=== PATIENT | female | born 1960 | race Caucasian/White ===

== ENCOUNTER 2017-05-07 17:15 | Emergency (ER) | payer BC ==
[~2017-05-07] VITALS: Ht 162.6 cm; Wt 129.7 kg
--- NOTE | 2017-05-07 17:30 | Emergency Room Report ---
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 N Clinical Suspician of Infection? N Mental Status: 1 - Regular (Normal Baseline) Sepsis Risk:Low Sepsis Risk Have you (or family members/close friends) recently traveled outside the [place]? N If Yes, where/when: Have you had exposure to infectious disease within the past month? TB? Other? Specify: Source patient, RN notes reviewed Exam Limitations no limitations Comment Pt comes to the ED with pain in the left SI jjoint that started last night and feels like a nerve that goes into her left hip. NO trouble with BM's, UT and no Saddle anesthesia. She has had 3 surgeries on the low back in 2008, 2011 and 2012. no recent injuries Cardiac Chest Pain Chest pain indicative of cardiac No ALLERGIES Coded Allergies: meperidine (From DEMEROL) (Mild, 05/07/17) morphine (Mild, 05/07/17) Home Medications Reported Medications Lovastatin 10 MG PO QHS OMEPRAZOLE MAGNESIUM (Prilosec OTC) 20 MG PO DAILYP PRN STOMACH Diltiazem Hydrochloride (Diltiazem) 120 MG PO DAILY Zolpidem Tartrate (Ambien 5MG) 5 MG PO QHS History Medical History General CAD? No Angina: Yes [place]: No Hypertension? Yes Hyperlipidemia? Yes CHF? No DVT? No PE? No COPD? No Asthma? No Anemia? No GERD? No Gastric ulcers? No GI Bleed? No Hernia? Yes Thyroid Problems? No Hypothyroidism? No CVA? No Seizures? No Diabetes? No Renal Insuffiency? No End Stage Renal Disease? No UTI? Yes Stones? No BPH? No GB Disease: No Nephritic Syndrome? No Asplenia? No Hepatitis? No Sickle Cell Disease? No Arthritis? Yes Migraines? No Cataracts? No Glaucoma? No MRSA? No HIV? No TB? No Anxiety? No Depression? No Cancer? 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 2 or more SIRS Criteria Met? B/P: MAP: Creatinine >2.0? UA output<0.5ml/kg/hr for 2 hrs? Platelet count >100,000? Lactate >2.0mmol/1? INR >1.2 or PTT > than 60 sec? Evidence of Organ Dysfunction? Provider documented clinical suspician of infection? N Sepsis Criteria Count: 1 Sepsis Risk: Low Sepsis Risk General Appearance normal appearance, WD/WN, no apparent distress Respiratory Status No: respiratory distress. 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 Yes Mathieu was queried for this patient? Yes Reference #: [id number] Risks/benefits of using a controlled substance for treatment were not discussed w/pt Departure Departure Time of Disposition 1741 Disposition DC Home or Self Care(routine) Clinical Impression Primary Impression: Chronic low back pain Qualifiers: Back pain laterality: left Sciatica presence: with sciatica Sciatica laterality: sciatica of left side Qualified Code: M54.42 - Lumbago with sciatica, left side Condition STABLE Referrals Oscar HU,Joby Armendariz (Family): 3 Days-Call Office Patient Instructions DI for Back Pain With Sciatica, DI for Low Back Pain, DI for Sciatica, Low Back Pain, Sciatica, Sciatica (Alternative Therapy) Additional Instructions Use meds as directed, sleep on a flat, hard surfface and followup with PCP to get MRI if symptoms persist Discharge Counseling Counseled pt/family regarding diagnosis, medications/RX, home care, follow up needs Prescriptions Current Visit Scripts Methocarbamol (Robaxin 500MG) 500 MG PO Q8H #60 TAB HYDROCODONE 5MG/APAP 325MG (Hydrocodon-Acetaminophen 5-325) 1 TAB PO Q4HP PRN pain #18 TAB ED Critical Care Critical Care No If Critical Care minutes are documented, the time involved in the performance of seperately reportable procedures was not counted toward critical care time documented. I directly delivered medical care to this critically ill and/or injured patient. Timely evaluation and treatment was necessary to address the significant organ system(s) dysfunction present in this patient. at 8840
--- NOTE | 2017-05-07 17:30 | Emergency Room Report ---
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 N Clinical Suspician of Infection? N Mental Status: 1 - Regular (Normal Baseline) Sepsis Risk:Low Sepsis Risk Have you (or family members/close friends) recently traveled outside the [place]? N If Yes, where/when: Have you had exposure to infectious disease within the past month? TB? Other? Specify: Source patient, RN notes reviewed Exam Limitations no limitations Comment Pt comes to the ED with pain in the left SI jjoint that started last night and feels like a nerve that goes into her left hip. NO trouble with BM's, UT and no Saddle anesthesia. She has had 3 surgeries on the low back in 2008, 2011 and 2012. no recent injuries Cardiac Chest Pain Chest pain indicative of cardiac No ALLERGIES Coded Allergies: meperidine (From DEMEROL) (Mild, 05/07/17) morphine (Mild, 05/07/17) Home Medications Reported Medications Lovastatin 10 MG PO QHS OMEPRAZOLE MAGNESIUM (Prilosec OTC) 20 MG PO DAILYP PRN STOMACH Diltiazem Hydrochloride (Diltiazem) 120 MG PO DAILY Zolpidem Tartrate (Ambien 5MG) 5 MG PO QHS History Medical History General CAD? No Angina: Yes [place]: No Hypertension? Yes Hyperlipidemia? Yes CHF? No DVT? No PE? No COPD? No Asthma? No Anemia? No GERD? No Gastric ulcers? No GI Bleed? No Hernia? Yes Thyroid Problems? No Hypothyroidism? No CVA? No Seizures? No Diabetes? No Renal Insuffiency? No End Stage Renal Disease? No UTI? Yes Stones? No BPH? No GB Disease: No Nephritic Syndrome? No Asplenia? No Hepatitis? No Sickle Cell Disease? No Arthritis? Yes Migraines? No Cataracts? No Glaucoma? No MRSA? No HIV? No TB? No Anxiety? No Depression? No Cancer? 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 2 or more SIRS Criteria Met? B/P: MAP: Creatinine >2.0? UA output<0.5ml/kg/hr for 2 hrs? Platelet count >100,000? Lactate >2.0mmol/1? INR >1.2 or PTT > than 60 sec? Evidence of Organ Dysfunction? Provider documented clinical suspician of infection? N Sepsis Criteria Count: 1 Sepsis Risk: Low Sepsis Risk General Appearance normal appearance, WD/WN, no apparent distress Respiratory Status No: respiratory distress. 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 Yes Mathieu was queried for this patient? Yes Reference #: [id number] Risks/benefits of using a controlled substance for treatment were not discussed w/pt Departure Departure Time of Disposition 1741 Disposition DC Home or Self Care(routine) Clinical Impression Primary Impression: Chronic low back pain Qualifiers: Back pain laterality: left Sciatica presence: with sciatica Sciatica laterality: sciatica of left side Qualified Code: M54.42 - Lumbago with sciatica, left side Condition STABLE Referrals Oscar HU,Joby Armendariz (Family): 3 Days-Call Office Patient Instructions DI for Back Pain With Sciatica, DI for Low Back Pain, DI for Sciatica, Low Back Pain, Sciatica, Sciatica (Alternative Therapy) Additional Instructions Use meds as directed, sleep on a flat, hard surfface and followup with PCP to get MRI if symptoms persist Discharge Counseling Counseled pt/family regarding diagnosis, medications/RX, home care, follow up needs Prescriptions Current Visit Scripts Methocarbamol (Robaxin 500MG) 500 MG PO Q8H #60 TAB HYDROCODONE 5MG/APAP 325MG (Hydrocodon-Acetaminophen 5-325) 1 TAB PO Q4HP PRN pain #18 TAB ED Critical Care Critical Care No If Critical Care minutes are documented, the time involved in the performance of seperately reportable procedures was not counted toward critical care time documented. I directly delivered medical care to this critically ill and/or injured patient. Timely evaluation and treatment was necessary to address the significant organ system(s) dysfunction present in this patient. at 1826
[2017-05-07 18:03] VITALS: BP 165/100
--- OUTSIDE RECORDS SUMMARY | 2017-05-17 05:06 | External Medical Summary Rpt | CCD ---
Author Author , SHAWNA Organization [employer] Address Unknown Phone [email or web address] Care Team Providers Care Sdc Teacher Name Role Phone Laisha THOMAS, Unavailable Unavailable Laisha THOMAS Purpose Continuity of Care Document - 06-26-2013 through 2016 Problems Code Diagnosis DOS Provider Status 272.4 Hyperlipide [facility] 276.8 Hypokalemia [facility] [id number] Chest pain [facility] [id number] Tachycardia [facility] 401.1 Benign [facility] n [phone] Active [facility] 789.06 Epigastric [facility] [id number] Chronic [facility] Allergies, Adverse Reactions, Alerts Type Drug Allergy Adverse Reaction to Substance Substance Reaction Severity Meperidine CAUSE ME TO GET HOT Unknown ALL OVER BODY Morphine I-RASH Intermediate Medications Na ND Rx Da Fi Fi Am Da Di Ph RX Ph St me C No te ll ll ou ys ag ar # ys at rm s nt no ma ic us Or Da si cy ia de te s n re d Sa 63 02 0 No li 80 -1 ne 70 2- Lo 10 20 ng Fl 07 14 er us 5 h Ac 10 ti ML ve Sy ri ng e LO 00 02 0 No RA 64 -1 ZE 16 2- Lo PA 04 20 ng M 82 14 er 2 5 MG Ac /M ti L ve AL EN 55 02 0 No AL 39 -1 AP 00 2- Lo RI 01 20 ng LA 11 14 er T 0 1. Ac 25 ti ve MG /M L AL ON 00 02 0 No DA 64 -1 NS 16 2- Lo ET 08 20 ng RO 02 14 er N 5 HC Ac L ti 4 ve MG /2 ML AL SO 00 11 0 No DI 40 -2 UM 97 1- Lo 98 20 ng CH 30 13 er LO 9 RI Ac DE ti ve 0. 9% SO MURIEL TI ON Sa 63 11 0 No li 80 -2 ne 70 1- Lo 10 20 ng Fl 07 13 er us 5 h Ac 10 ti ML ve Sy ri ng e NI 00 11 0 No TR 07 -2 OS 10 1- Lo TA 41 20 ng T 81 13 er 0. 3 4 Ac MG ti ve TA BL ET SL LO 00 11 0 No RA 64 -2 ZE 16 1- Lo PA 04 20 ng M 82 13 er 2 5 MG Ac /M ti L ve AL ND 00 11 0 No OM 64 -2 ET 11 1- Lo YOUNG 49 20 ng ZI 53 13 er NE 5 Ac 25 ti ve MG /M L AM PU L PA 51 11 0 No NT 07 -2 OP 90 1- Lo RA 05 20 ng ZO 12 13 er LE 0 Ac SO ti D ve DR 40 MG TA B 63 11 0 No PI 73 -2 RI 90 1- Lo N 02 20 ng EC 30 13 er 1 32 Ac 5 ti MG ve TA BL ET Di 00 11 0 No lt 45 -2 ia 62 1- Lo ze 61 20 ng m 36 13 er 18 3 0M Ac G ti ER ve Ca ps ul e GI 12 11 0 No 32 -2 CO 22 1- Lo CK 22 20 ng TA 22 13 er IL 2 Ac 60 ti ML ve UD C Vital Signs 09-17-2013 23:23 Name Value Interpretat Reference Comment ion Range BP 100 mm[Hg] Diastolic BP Systolic 156 mm[Hg] Heart 106 /min Rate/Pulse O2% 95 % Respiratory 20 /min Rate 09-17-2013 20:23 Name Value Interpretat Reference Comment ion Range BP 92 mm[Hg] Diastolic BP Systolic 135 mm[Hg] Heart 103 /min Rate/Pulse O2% 97 % Respiratory 20 /min Rate 06-26-2013 14:48 Name Value Interpretat Reference Comment ion Range Body 98.5 [degF] Temperature BP 86 mm[Hg] Diastolic BP Systolic 131 mm[Hg] Heart 104 /min Rate/Pulse Respiratory 20 /min Rate 06-26-2013 12:00 Name Value Interpretat Reference Comment ion Range O2% 92 % 06-26-2013 03:46 Name Value Interpretat Reference Comment ion Range Height 162.56 cm Weight 122.925 kg Measured 06-26-2013 01:06 Name Value Interpretat Reference Comment ion Range Body 97.9 [degF] Temperature BP 126 mm[Hg] Diastolic BP Systolic 203 mm[Hg] Heart 117 /min Rate/Pulse O2% 97 % Respiratory 20 /min Rate Weight 0 [oz_av] Measured Results Labs Lab Lab Date Result Refere Interp Status Commen Order Detail nces retati t Range on TROPONIN I (09-17-2013 22:10) TROPONI 2 Less 0.00-0. complet N I 014 than 06 ed 22:10 0.02 ng/mL COMPREHENSIVE METABOLIC PANEL (09-17-2013 19:45) Glucose 130 74-106 complet 014 mg/dL ed Bld-mCn 19:45 c BUN 13 7-18 complet Bld-mCn 014 mg/dL ed c 19:45 Creat 0.9 0.6-1.0 complet SerPl-m 014 mg/dL ed Cnc 19:45 Creat 136 50-200 complet Cl 014 ML/MIN ed predict 19:45 ed SerPl C-G-vRa te GFR/BSA 66 59- complet .pred 014 ML/MIN ed SerPl 19:45 Schwart z-vRate Sodium 144 136-145 complet SerPl-s 014 mmoL/L ed Cnc 19:45 Potassi 3.5 3.5-5.1 complet um 014 mmoL/L ed SerPl-s 19:45 Cnc Chlorid 104 98-107 complet e 014 mmoL/L ed SerPl-s 19:45 Cnc CO2 28 21.0-32 complet SerPl-s 014 mmoL/L .0 ed Cnc 19:45 Calcium 09-17-2 9.4 8.5-10. complet 014 mg/dL 1 ed SerPl-m 19:45 Cnc Prot 09-17-2 7.9 6.4-8.2 complet SerPl-m 014 gm/dL ed Cnc 19:45 Albumin 09-17-2 4.0 3.4-5.0 complet 014 gm/dL ed SerPl-m 19:45 Cnc Globuli 3.9 1.3-3.2 complet n 014 gm/dL ed Ser-mCn 19:45 c Albumin 2 1.0 UNK 1.1-1.8 complet /Glob 014 ed SerPl-m 19:45 Rto Bilirub 2 0.2 0.2-1.0 complet 014 mg/dL ed SerPl-m 19:45 Cnc AST 2 26 U/L 15-37 complet SerPl-c 014 ed Cnc 19:45 ALT 53 U/L 12-78 complet SerPl-c 014 ed Cnc 19:45 ALP 2 100 U/L 50-136 complet SerPl-c 014 ed Cnc 19:45 Amylase SerPl-cCnc (09-17-2013 19:45) Amylase 2 54 U/L 25-115 complet 014 ed SerPl-c 19:45 Cnc LIPASE (09-17-2013 19:45) LIPASE 157 U/L 73-393 complet 014 ed 19:45 CBC with AUTO DIFF (09-17-2013 19:45) WBC # 02-12-2 5.5 4.8-10. complet Bld 014 K/MM3 8 ed Auto 19:45 RBC # 09-17-2 5.42 4.2-5.4 complet Bld 014 M/mm3 ed Auto 19:45 Hgb 09-17-2 14.8 12.2-16 complet Bld-mCn 014 g/dL .2 ed c 19:45 Hct Fr 45.0 % 37.0-47 complet Bld 014 .0 ed 19:45 MCV RBC 09-17-2 83.0 fl 82.2-97 complet 014 .8 ed 19:45 MCH RBC 09-17-2 27.3 pg 27-31.2 complet Qn 014 ed Auto 19:45 MEAN 2 32.9 31.8-35 complet CORPUSC 014 g/dl .4 ed ULAR 19:45 HGB CONC RDW RBC 2 14.0 % 11.5-17 complet Auto 014 .5 ed 19:45 Platele 215 142-424 complet t Bld 014 K/mm3 ed Ql 19:45 Manual MEAN 8.0 fl 7.4-10. complet PLATELE 014 4 ed T 19:45 VOLUME Granulo 2 42.6 % 37.0-80 complet cytes 014 .0 ed Fr Bld 19:45 Auto LYMPH % 02-12-2 48.7 % 10-50.0 complet 014 ed 19:45 Monocyt 02-12-2 4.7 % 1.7-9.3 complet es Fr 014 ed Bld 19:45 Auto Eosinop 02-12-2 3.5 % 0.1-12. complet hil Fr 014 0 ed Bld 19:45 Auto Basophi 02-12-2 0.5 % 0.1-2.0 complet ls Fr 014 ed Bld 19:45 Auto Granulo 02-12-2 2.4 1.8-7.8 complet cytes # 014 K/mm3 ed Bld 19:45 Auto Lymphoc 02-12-2 2.7 0.7-4.5 complet ytes Fr 014 K/mm3 ed Bld 19:45 Auto Monocyt 02-12-2 0.3 0.1-1.0 complet es # 014 K/mm3 ed Bld 19:45 Auto Eosinop -12-2 0.2 0.0-0.4 complet hil # 014 K/mm3 ed Bld 19:45 Auto Basophi 02-12-2 0.0 0-0.2 complet ls # 014 K/MM3 ed Bld 19:45 Auto COMPREHENSIVE METABOLIC PANEL (06-26-2013 01:20) Glucose 06-26- 112 74-106 complet 013 mg/dL ed Bld-mCn 01:20 c BUN 06-26- 13 7-18 complet Bld-mCn 013 mg/dL ed c 01:20 Creat 0.9 0.6-1.0 complet SerPl-m 013 mg/dL ed Cnc 01:20 ESTIMAT 06-26- 138 50-200 complet ED 013 ML/MIN ed CREATIN 01:20 INE CLEARAN CE GFR 06-26- 66 59- complet (ESTIMA 013 ML/MIN ed PATRICIO) 01:20 Sodium 06-26- 143 136-145 complet SerPl-s 013 mmoL/L ed Cnc 01:20 Potassi 3.1 3.5-5.1 complet um 013 mmoL/L ed SerPl-s 01:20 Cnc Chlorid 105 98-107 complet e 013 mmoL/L ed SerPl-s 01:20 Cnc CO2 11-21-2 26 21.0-32 complet SerPl-s 013 mmoL/L .0 ed Cnc 01:20 Calcium 06-26-2 9.1 8.5-10. complet 013 mg/dL 1 ed SerPl-m 01:20 Cnc Prot 06-26-2 7.7 6.4-8.2 complet SerPl-m 013 gm/dL ed Cnc 01:20 Albumin 06-26-2 3.8 3.4-5.0 complet 013 gm/dL ed SerPl-m 01:20 Cnc Globuli 06-26-2 3.9 1.3-3.2 complet n 013 gm/dL ed Ser-mCn 01:20 c Albumin 06-26-2 1.0 UNK 1.1-1.8 complet /Glob 013 ed SerPl-m 01:20 Rto Bilirub 06-26-2 0.3 0.2-1.0 complet 013 mg/dL ed SerPl-m 01:20 Cnc AST 06-26-2 21 U/L 15-37 complet SerPl-c 013 ed Cnc 01:20 ALT 06-26-2 55 U/L 30-65 complet SerPl-c 013 ed Cnc 01:20 ALP 06-26-2 90 U/L 50-136 complet SerPl-c 013 ed Cnc 01:20 Amylase SerPl-cCnc (06-26-2013 01:20) Amylase 06-26-2 43 U/L 25-115 complet 013 ed SerPl-c 01:20 Cnc LIPASE (06-26-2013 01:20) LIPASE 06-26-2 118 U/L 73-393 complet 013 ed 01:20 LIPID PROFILE (06-26-2013 01:20) Cholest 06-26-2 201 Less complet 013 mg/dL than ed SerPl-m 01:20 200 Cnc HDLc 06-26-2 51.0 40-60 complet SerPl-m 013 MG/DL ed Cnc 01:20 LDLc 06-26-2 131.8 0-130 complet SerPl 013 mg/dL ed Calc-mC 01:20 nc VLDL 06-26-2 18.2 0-40 complet CHOLEST 013 UNK ed JEY 01:20 Trigl 21-2 91 30-200 complet SerPl-m 013 mg/dL ed Cnc 01:20 CBC with AUTO DIFF (06-26-2013 01:20) WBC # 11-21-2 6.8 4.8-10. complet Bld 013 K/MM3 8 ed Auto 01:20 RBC # 11-21-2 4.87 4.2-5.4 complet Bld 013 M/mm3 ed Auto 01:20 Hgb 11-21-2 13.8 12.2-16 complet Bld-mCn 013 g/dL .2 ed c 01:20 Hct Fr 11-21-2 40.5 % 37.0-47 complet Bld 013 .0 ed 01:20 MCV RBC 11-21-2 83.3 fl 82.2-97 complet 013 .8 ed 01:20 MCH RBC 11-21-2 28.4 pg 27-31.2 complet Qn 013 ed Auto 01:20 MEAN 11-21-2 34.1 31.8-35 complet CORPUSC 013 g/dl .4 ed ULAR 01:20 HGB CONC RDW RBC 11-21-2 15.5 % 11.5-17 complet Auto 013 .5 ed 01:20 Platele 11-21-2 204 142-424 complet t Bld 013 K/mm3 ed Ql 01:20 Manual MEAN 11-21-2 8.1 fl 7.4-10. complet PLATELE 013 4 ed T 01:20 VOLUME Granulo 11-21-2 36.8 % 37.0-80 complet cytes 013 .0 ed Fr Bld 01:20 Auto LYMPH % 11-21-2 54.2 % 10-50.0 complet 013 ed 01:20 Monocyt 11-21-2 5.4 % 1.7-9.3 complet es Fr 013 ed Bld 01:20 Auto Eosinop 11-21-2 2.9 % 0.1-12. complet hil Fr 013 0 ed Bld 01:20 Auto Basophi 11-21-2 0.7 % 0.1-2.0 complet ls Fr 013 ed Bld 01:20 Auto Granulo 11-21-2 2.5 1.8-7.8 complet cytes # 013 K/mm3 ed Bld 01:20 Auto Lymphoc 11-21-2 3.7 0.7-4.5 complet ytes Fr 013 K/mm3 ed Bld 01:20 Auto Monocyt 11-21-2 0.4 0.1-1.0 complet es # 013 K/mm3 ed Bld 01:20 Auto Eosinop 06-26-2 0.2 0.0-0.4 complet hil # 013 K/mm3 ed Bld 01:20 Auto Basophi 06-26-2 0.1 0-0.2 complet ls # 013 K/MM3 ed Bld 01:20 Auto Encounters Encounter Start End Date Code Location Performer Type Date Emergency NANCY Aidan Moore MD (ER) 4 19:56 4 23:24 [facility] Inpatient [place]MA [place] ([place]) 3 01:41 3 03:34 [facility]
--- OUTSIDE RECORDS SUMMARY | 2017-05-17 05:06 | External Medical Summary Rpt | CCD ---
Author Author , SHAWNA Organization [employer] Address Unknown Phone [email or web address] Care Team Providers Care Associate Justice Name Role Phone Laisha THOMAS, Unavailable Unavailable Laisha THOMAS Purpose Continuity of Care Document - 06-26-2013 through 2016 Problems Code Diagnosis DOS Provider Status 272.4 Hyperlipide [facility] 276.8 Hypokalemia [facility] [id number] Chest pain [facility] [id number] Tachycardia [facility] 401.1 Benign [facility] n [phone] Active [facility] 789.06 Epigastric [facility] [id number] Chronic [facility] Allergies, Adverse Reactions, Alerts Type Drug Allergy [...] MG Ac /M ti L ve AL DC 00 11 0 No OM 64 -2 [...] Moore MD (ER) 4 19:56 4 23:24 [facility] Inpatient [place] ([place] 3 01:41 3 03:34 [facility]
--- OUTSIDE RECORDS SUMMARY | 2017-05-17 05:07 | External Medical Summary Rpt | CCD ---
Demographics Preferred Language Czech Marital Status Unknown Orthodox Affiliation Unknown Race Unknown Ethnic Group Unknown Author Author , SHAWNA MATOS Address Unknown Phone Immunization No patient found.
--- OUTSIDE RECORDS SUMMARY | 2017-05-17 05:07 | External Medical Summary Rpt | CCD ---
Author Author [employer] Organization [employer] Address Unknown Phone Unavailable Purpose Continuity of Care Document - through 2016
--- OUTSIDE RECORDS SUMMARY | 2017-05-17 05:07 | External Medical Summary Rpt ---
Author Author SHAWNA Pulido, [employer] Organization [employer] Address Unknown Phone Unavailable
--- OUTSIDE RECORDS SUMMARY | 2017-05-17 05:07 | External Medical Summary Rpt | CCD ---
Demographics Preferred Language Nepali Marital Status Unknown Pentecostal Affiliation Unknown Race Unknown Ethnic Group Unknown Author Author , SHAWNA MATOS Address Unknown Phone Immunization No patient found.
== END 2017-05-07 18:04 | disposition home or self-care (01) ==
LOC: ER 17:15
DX: M54.42 Lumbago with sciatica, left side (principal); I10 Essential (primary) hypertension; Z88.6 Allergy status to analgesic agent